=== PATIENT | female | born 1930 | race Caucasian/White ===

== ENCOUNTER 2017-09-30 17:10 | Emergency (ER) | payer MEDICARE | END 2017-09-30 17:33 | disposition home or self-care (01) | LOC: BURERS 17:10 | DX: T16.1XXA Foreign body in right ear, initial encounter (principal); I10 Essential (primary) hypertension; F41.9 Anxiety disorder, unspecified; F32.9 Major depressive disorder, single episode, unspecified; Z79.899 Other long term (current) drug therapy; Z79.82 Long term (current) use of aspirin | CPT/HCPCS: 69200 ==

== ENCOUNTER 2017-10-24 12:21 | Emergency (ER) | payer MEDICARE ==
[2017-10-24] MEDS ORDERED: Lidocaine Viscous Sol 2% 15 ml UD Cup ONE (12:28)
== END 2017-10-24 12:50 | disposition home or self-care (01) ==
LOC: BURERS 12:21
DX: T16.2XXA Foreign body in left ear, initial encounter (principal); I10 Essential (primary) hypertension; F41.9 Anxiety disorder, unspecified; F32.9 Major depressive disorder, single episode, unspecified
CPT/HCPCS: 69200